=== PATIENT | female | born 1965 | race Caucasian/White ===

== ENCOUNTER 2017-04-23 05:27 | Day surgery (SDC) | payer OTHER ==
[~2017-04-23] VITALS: Ht 170.2 cm; Wt 98.4 kg
--- NOTE | ~2017-04-23 | O ---
[facility] [place] [address] OPERATIVE REPORT Name: ELDER SINGH MAKSIM Room #: [place] [facility] [place]R.#: [id number] Admission: 04/23/17 Attend Phys: Dennis Ennis MD Discharge: 04/23/17 Date of : 69 Report #: [id number] THIS REPORT FOR: //name// CC: Dennis Ennis [facility] DATE OF SERVICE: 04/23/2017 PREOPERATIVE DIAGNOSES: Nasal septal deformity, turbinate hypertrophy. POSTOPERATIVE DIAGNOSES: Nasal septal deformity, turbinate hypertrophy. PROCEDURE: Nasal septal reconstruction, inferior turbinate submucous resection and outfracturing. SURGEON: Dennis Ennis M.D. ANESTHESIA: General LMA. INDICATIONS: See H and P. FINDINGS: Deviated nasal septum bowed substantially to the right side with bilateral inferior turbinate hypertrophy noted. TECHNIQUE: After obtaining consent, she was brought to the operating suite, appropriate timeout was performed. General LMA anesthesia was obtained and maintained throughout the case with inhalational agents. The bed was turned 90 degrees. Nose was prepped and draped in usual sterile fashion. A 6 mL of 1% Xylocaine and 1:100,000 epinephrine was injected submucosally in each side of the septum. Later an additional mL was injected in the medial surface of each inferior turbinate. Care was made not to inject intravascularly. A right-sided hemitransfixion incision was made on the caudal edge. Mucosal flap was elevated off the quadrangular cartilage, vomer and perpendicular plate and the maxillary crest on the left side after fully exposing the bowing of the quadrangular cartilage. Using a Liberty knife, cuts were made in the quadrangular cartilage to remove the deviation, leaving enough anteriorly and superiorly for adequate tip support. Cartilage was removed and placed on the back table. The bony cartilaginous junction was disarticulated. The mucosal flaps were elevated off the right side to fully expose both sides of the vomer and perpendicular plate. With the use of either Sunny-Kari scissors, Sunny-Kari punches or Aurora forceps, the deviations of the bony septum were removed. At that point, the septum had been adequately straightened. Previously harvested cartilage was trimmed, morcellized and placed back between the septal folds in the mid portion. Small mucosal incision was made inferiorly to allow for secretions to escape. Hemitransfixion incision was closed with [facility] [address] [address] OPERATIVE REPORT Name: ELDER SINGH MAKSIM Room #: [place] [facility] [place]ri#: [id number] Admission: 04/23/17 Attend Phys: Dennis Ennis MD Discharge: 04/23/17 Date of : 69 Report #: [id number] simple interrupted 4-0 chromic suture. Simple splints designed and fashioned by myself were placed in each side of the septum and secured with a 3-0 Prolene suture. Each inferior turbinate was medialized with a Gwinnett elevator. Local anesthetic was infiltrated. A small incision was made on the anterior face of each inferior turbinate with a Liberty blade and a submucosal flap was elevated on the medial and medial inferior surfaces bilaterally with a Dixon. Submucous resection was performed with the 2.0 microdebrider blade to effect. Each inferior turbinate was then outfractured with a Gwinnett elevator. Merogel was then used to stent between the septum and the inferior turbinate to allow for further lateralization and prevent synechia formation. At that point, the case was terminated having met the goals, except the posterior nasopharynx was suctioned free of secretions. She was extubated and taken to recovery room in stable condition. ESTIMATED BLOOD LOSS: 20-25 mL. <ELECTRONICALLY SIGNED> By: Dennis Ennis MD 04/27/17 1200 1102 1206 Dennis Ennis MD /nt
--- NOTE | ~2017-04-23 | H ---
[facility] [place] [address] HISTORY AND PHYSICAL Name: ELDRE SINGH Room #: 150-20 [facility] M.R.#: [id number] Admission: 04/23/17 Attend Phys: Dennis Ennis MD Discharge: Date of : 69 Report #: [id number] THIS REPORT FOR: //name// CC: Dennis Ennis Zaire [facility] DATE OF SERVICE: 04/23/2017 CHIEF COMPLAINT: Nasal airway obstruction. HISTORY OF PRESENT ILLNESS: The patient is a 51-year-old female who presented in March of 2017 with known complaint of nasal airway obstruction and nasal congestion on the right side without any sleep disorder breathing issues. She has strong allergy history as well. Physical examination at that time did confirm findings of a septal deviation and compensatory turbinate hypertrophy. I did discuss the nasal septal anatomy findings along with her high risk for allergic rhinitis and need to control this as well. I did recommend she consider both these options for treatment. Risks and benefits for surgical intervention were discussed in great detail as outlined in the patient's note and the questions were answered. She agrees at this point, wishes to proceed with surgical intervention. ALLERGIES: May be addressed at a later date depending on the results. ALLERGIES TO MEDICATION: None. MEDICATIONS ON ADMISSION: Azelastine nasal steroids, nasal spray as needed, Effexor XR, Vyvanse and Zyrtec. PAST SURGICAL HISTORY: Notable for abdominal surgery, adenotonsillectomy and knee surgery. MEDICAL HISTORY: Notable for ADHD, anxiety, depression and allergic rhinitis. FAMILY HISTORY: Notable for history of heart disease and stroke in her father and a remote history in her grandparents with cancer. REVIEW OF SYSTEMS: Otherwise, negative for any known GI, , cardiovascular or pulmonary issues. PHYSICAL EXAMINATION: VITAL SIGNS: A female of 5 feet 7 inches, weight of 210 pounds. GENERAL: She appears her stated age. HEENT: As noted above for the nasal examination. Oral cavity shows surgically absent tonsils. Oropharynx is normal. NECK: Normal to palpation. [facility] [address] [place] [address] HISTORY AND PHYSICAL Name: ELDER SINGH [facility] Room #: [address] [place] [address] M.R.#: [id number] Admission: 04/23/17 Attend Phys: Dennis Ennis MD Discharge: Date of : 69 Report #: [id number] CARDIOVASCULAR: Regular rate, regular rhythm. ASSESSMENT: History of deviated nasal anatomy, nasal airway obstruction. PLAN: Will be for surgical intervention as noted above. <ELECTRONICALLY SIGNED> By: Dennis Ennis MD 04/23/17 0718 [id number] Dennis Ennis MD /nt
[~2017-04-23 05:27] MED LIST: EFFEXOR XR150 MG PO; VYVANSE70 MG PO; ZYRTEC10 M5 PO
[2017-04-23 09:36] VITALS: BP 129/84
[2017-04-23 11:24] VITALS: BP 129/84
== END 2017-04-23 15:00 | disposition home or self-care (01) ==
LOC: TBA 05:27 → OR 05:27
DX: J34.2 Deviated nasal septum (principal); J34.3 Hypertrophy of nasal turbinates; Z98.890 Other specified postprocedural states
CPT/HCPCS: 50010; 50101; 50386; 50398; 51316; 51634; 53635; 56526; 56528; 62110; 62900; 70005